=== PATIENT | female | born 1955 | race Caucasian/White ===

== ENCOUNTER 2020-05-17 11:37 | Emergency (ER) | payer MEDICARE | END 2020-05-17 13:05 | disposition home or self-care (01) | LOC: ERS 11:37 | DX: K08.89 Other specified disorders of teeth and supporting structures (principal); J43.9 Emphysema, unspecified; Z87.891 Personal history of nicotine dependence | CPT/HCPCS: 99282 ==

== ENCOUNTER 2020-06-22 13:14 | Emergency (ER) | payer MEDICARE ==
[2020-06-22 13:51] LABS: #Eosinphils 0.1 thou/uL (0.0-0.7); #Lymphocytes 1.6 thou/uL (1.20-3.40); #Monocytes 0.5 thou/uL (0.11-0.59); %Basophils 0.6 % (0.0-1.0); %Eosinophils 1.5 % (0.0-10.0); %Lymphocytes 19.7 % (21.0-51.0); %Monocytes 6.3 % (0.0-10.0); %Neutrophils 71.9 % (42.0-75.0); Hemoglobin 15.3 g/dL (12.0-16.0); Mean Corpuscular HGB CONC 33.8 g/dL (32.0-36.0); Mean Corpuscular Hemoglobin 31.1 pg (27.0-31.0); Mean Platelet Volume 6.5 fL (7.4-10.4); Platelet Count 309 thou/uL (130-400); RBC Distribution Width 11.4 % (11.5-14.5); Red Blood Cell (RBC) Count 4.93 mill/uL (4.20-5.40); White Blood Cell (WBC) Count 8.3 thou/uL (4.8-10.8)
[2020-06-22 14:13] LABS: ALT (SGPT) 7 U/L (8-55); AST (SGOT) 11 U/L (5-34); Albumin 3.7 g/dL (3.4-4.8); Alkaline Phosphatase 124 U/L (40-110); Anion Gap 12 mmol/L (10-20); BUN (Urea Nitrogen) 11 mg/dL (9.8-20.1); Bilirubin, Total 0.4 mg/dL (0.2-1.2); Calc. Creatinine Clearance 0 mL/min (70-130); Calcium 9.5 mg/dL (7.8-10.44); Carbon Dioxide 32 mmol/L (23-31); Chloride 102 mmol/L (98-107); Estimated GFR-MDRD 87; Globulin 3.2 g/dL (2.4-3.5); Glucose 114 mg/dL (80-115); Potassium 3.9 mmol/L (3.5-5.1); Protein, Total 6.9 g/dL (6.0-8.3); Sodium 142 mmol/L (136-145)
--- NOTE | 2020-06-22 14:33 | RAD ---
RADIOGRAPH CHEST 1 VIEW: DATE: 06/22/2020 HISTORY: 64-year-old female with cough FINDINGS: There are no airspace densities, pulmonary edema, pneumothorax, or cardiomegaly. The lateral costophr enic angles are sharp. Right axillary surgical clips. IMPRESSION: No acute cardiopulmonary findings.
[2020-06-22 14:58] LABS: Bacteria/HPF 4+ HPF (None Seen); Bilirubin Negative (Negative); Blood, Urine 1+ (Negative); Clarity Turbid (Clear); Glucose, Urine (Dipstick) Normal (Negative); Ketone, Urine Negative (Negative); Leukocyte 500 Leu/uL (Negative); Nitrite 2+ (Negative); Protein, Urine (Dipstick) 20 mg/dL (Neg-Trace); Specific Gravity, Urine 1.011 (1.002-1.036); Squamous Epithelial 0-3 HPF (0-3); Urobilinogen Normal mg/dL (Less than 2); WBC/HPF Greater than 50 HPF (0-3); pH, Urine 6.5 (5.0-9.0)
== END 2020-06-22 15:25 | disposition home or self-care (01) ==
LOC: ERS 13:14
DX: N30.00 Acute cystitis without hematuria (principal); J43.9 Emphysema, unspecified; Z87.891 Personal history of nicotine dependence
CPT/HCPCS: 36415; 71045; 80053; 81003; 81015; 85025; 87077; 87086; 87186

== ENCOUNTER 2020-07-31 14:09 | Emergency (ER) | payer MEDICARE | END 2020-07-31 15:40 | disposition home or self-care (01) | LOC: ERS 14:09 | DX: H60.92 Unspecified otitis externa, left ear (principal); J43.9 Emphysema, unspecified; Z87.891 Personal history of nicotine dependence | CPT/HCPCS: 99282 ==

== ENCOUNTER 2022-08-01 16:53 | Inpatient (IN) | payer MEDICARE ==
[2022-08-01] MEDS ORDERED: Ketorolac Tromethamine 30 MG/ML VIAL ONE (17:36)
[2022-08-01] MEDS ORDERED: Piperacillin/Tazobactam 3.375 GM VIAL ONE (17:36)
[2022-08-01] MEDS ORDERED: Acetaminophen 500 MG TAB ONE (17:36)
[2022-08-01 18:14] LABS: #Lymphocytes 0.9 thou/uL (1.20-3.40); #Monocytes 0.3 thou/uL (0.11-0.59); #Neutrophils 12.9 thou/uL (1.40-6.50); %Basophils 0.1 % (0.0-1.0); %Eosinophils 0.3 % (0.0-10.0); %Lymphocytes 6.1 % (21.0-51.0); %Monocytes 2.4 % (0.0-10.0); %Neutrophils 91.1 % (42.0-75.0); Hemoglobin 17.6 g/dL (12.0-16.0); Mean Corpuscular HGB CONC 34.4 g/dL (32.0-36.0); Mean Corpuscular Hemoglobin 31.5 pg (27.0-31.0); Mean Corpuscular Volume 91.6 fl (78.0-98.0); Platelet Count 270 10x3/uL (130-400); Red Blood Cell (RBC) Count 5.59 mill/uL (4.20-5.40); White Blood Cell (WBC) Count 14.1 10x3/uL (4.8-10.8)
[2022-08-01] MEDS ORDERED: Vancomycin 1 GM in Premix Bag 1 BAG IVPB SCH (18:30)
[2022-08-01 18:36] LABS: ALT (SGPT) 8 U/L (8-55); AST (SGOT) 16 U/L (5-34); Albumin 4.6 g/dL (3.4-4.8); Alkaline Phosphatase 136 U/L (40-110); Anion Gap 17 mmol/L (10-20); BUN (Urea Nitrogen) 14 mg/dL (9.8-20.1); Bilirubin, Total 0.8 mg/dL (0.2-1.2); Calc. Creatinine Clearance 0 mL/min (70-130); Calcium 9.6 mg/dL (7.8-10.44); Carbon Dioxide 25 mmol/L (23-31); Chloride 99 mmol/L (98-107); Estimated GFR 92; Globulin 3.5 g/dL (2.4-3.5); Glucose 111 mg/dL (80-115); Potassium 4.4 mmol/L (3.5-5.1); Protein, Total 8.1 g/dL (5.8-8.1); Sodium 137 mmol/L (136-145)
[2022-08-01] MEDS ORDERED: Ondansetron ODT 4 MG TAB PO PRN (19:58)
[2022-08-01] MEDS ORDERED: Ondansetron PF 4 MG/2 ML Vial IVP PRN (19:58)
[2022-08-01] MEDS ORDERED: Acetaminophen 650 MG Suppository PR PRN (19:58)
[2022-08-01 20:55] VITALS: BMI 23.9
[2022-08-01] MEDS: Sodium Chloride 0.9% 1,000 ML IV SCH (21:06)
[2022-08-02] MEDS: Acetaminophen 325 MG TAB PO PRN ×2 (04:20→21:52)
[2022-08-02] MEDS: Sodium Chloride 0.9% 1,000 ML IV SCH (04:21)
[2022-08-02] MEDS: cefTRIAXone\\ROCEPHIN 1 GM in Sodium Chloride 0.9% 100 ML IVPB SCH (04:21)
[2022-08-02] MEDS: Enoxaparin Sodium 40 MG/0.4 ML SYRINGE SC SCH (08:22)
[2022-08-02 09:26] LABS: #Monocytes 0.4 thou/uL (0.11-0.59); #Neutrophils 9.1 thou/uL (1.40-6.50); %Eosinophils 0.2 % (0.0-10.0); %Lymphocytes 9.8 % (21.0-51.0); %Neutrophils 86.1 % (42.0-75.0); Anion Gap 13 mmol/L (10-20); BUN (Urea Nitrogen) 12 mg/dL (9.8-20.1); Calc. Creatinine Clearance 90 mL/min (70-130); Calcium 8.3 mg/dL (7.8-10.44); Carbon Dioxide 21 mmol/L (23-31); Chloride 108 mmol/L (98-107); Estimated GFR 98; Glucose 94 mg/dL (80-115); Hemoglobin 13.3 g/dL (12.0-16.0); Mean Corpuscular HGB CONC 32.5 g/dL (32.0-36.0); Mean Corpuscular Hemoglobin 30.3 pg (27.0-31.0); Mean Corpuscular Volume 93.1 fl (78.0-98.0); Platelet Count 189 10x3/uL (130-400); Potassium 3.7 mmol/L (3.5-5.1); RBC Distribution Width 11.8 % (11.5-14.5); Red Blood Cell (RBC) Count 4.38 mill/uL (4.20-5.40); Sodium 138 mmol/L (136-145); White Blood Cell (WBC) Count 10.6 10x3/uL (4.8-10.8)
[2022-08-02] MEDS ORDERED: Iopamidol 370 76% 100 ML VIAL ONE (15:31)
[2022-08-02] MEDS: Doxycycline 100 MG in Sodium Chloride 0.9% 100 ML IVPB SCH (21:18)
[2022-08-03] MEDS: cefTRIAXone\\ROCEPHIN 1 GM in Sodium Chloride 0.9% 100 ML IVPB SCH (05:20)
[2022-08-03 07:29] LABS: #Lymphocytes 0.7 thou/uL (1.20-3.40); #Monocytes 0.4 thou/uL (0.11-0.59); #Neutrophils 6.7 thou/uL (1.40-6.50); %Basophils 0.3 % (0.0-1.0); %Eosinophils 0.3 % (0.0-10.0); %Monocytes 5.2 % (0.0-10.0); %Neutrophils 85.2 % (42.0-75.0); Hemoglobin 13.4 g/dL (12.0-16.0); Mean Corpuscular HGB CONC 34.3 g/dL (32.0-36.0); Mean Corpuscular Hemoglobin 31.4 pg (27.0-31.0); Mean Corpuscular Volume 91.5 fl (78.0-98.0); Mean Platelet Volume 6.9 fL (7.4-10.4); Platelet Count 175 10x3/uL (130-400); RBC Distribution Width 11.7 % (11.5-14.5); Red Blood Cell (RBC) Count 4.28 mill/uL (4.20-5.40); White Blood Cell (WBC) Count 7.9 10x3/uL (4.8-10.8)
[2022-08-03] MEDS: Doxycycline 100 MG in Sodium Chloride 0.9% 100 ML IVPB SCH ×2 (08:25→12:00)
[2022-08-03] MEDS: Enoxaparin Sodium 40 MG/0.4 ML SYRINGE SC SCH (08:26)
[2022-08-03 08:56] LABS: ALT (SGPT) 10 U/L (8-55); AST (SGOT) 15 U/L (5-34); Albumin 3.3 g/dL (3.4-4.8); Alkaline Phosphatase 99 U/L (40-110); Anion Gap 13 mmol/L (10-20); BUN (Urea Nitrogen) 9 mg/dL (9.8-20.1); Bilirubin, Total 0.5 mg/dL (0.2-1.2); Calc. Creatinine Clearance 90 mL/min (70-130); Calcium 8.7 mg/dL (7.8-10.44); Carbon Dioxide 22 mmol/L (23-31); Chloride 104 mmol/L (98-107); Estimated GFR 98; Globulin 2.8 g/dL (2.4-3.5); Glucose 90 mg/dL (80-115); Magnesium 1.7 mg/dL (1.6-2.6); Phosphorus 2.6 mg/dL (2.3-4.7); Potassium 3.5 mmol/L (3.5-5.1); Protein, Total 6.1 g/dL (5.8-8.1); Sodium 135 mmol/L (136-145)
[2022-08-03] MEDS ORDERED: diphenhydrAMINE 25 MG CAP PO SCH (15:30)
[2022-08-04] MEDS: Acetaminophen 325 MG TAB PO PRN (04:55)
[2022-08-04] MEDS: cefTRIAXone\\ROCEPHIN 1 GM in Sodium Chloride 0.9% 100 ML IVPB SCH (04:56)
[2022-08-04 07:30] LABS: Hemoglobin 13.6 g/dL (12.0-16.0); Mean Corpuscular HGB CONC 33.6 g/dL (32.0-36.0); Mean Corpuscular Hemoglobin 30.9 pg (27.0-31.0); Mean Corpuscular Volume 91.9 fl (78.0-98.0); Mean Platelet Volume 7.8 fL (7.4-10.4); Platelet Count 144 10x3/uL (130-400); RBC Distribution Width 11.7 % (11.5-14.5); White Blood Cell (WBC) Count 6.9 10x3/uL (4.8-10.8)
[2022-08-04 07:40] LABS: ALT (SGPT) 8 U/L (8-55); AST (SGOT) 11 U/L (5-34); Albumin 3.1 g/dL (3.4-4.8); Alkaline Phosphatase 93 U/L (40-110); Anion Gap 16 mmol/L (10-20); BUN (Urea Nitrogen) 9 mg/dL (9.8-20.1); Bilirubin, Total 0.4 mg/dL (0.2-1.2); Calc. Creatinine Clearance 81 mL/min (70-130); Calcium 8.4 mg/dL (7.8-10.44); Carbon Dioxide 22 mmol/L (23-31); Chloride 104 mmol/L (98-107); Estimated GFR 96; Globulin 2.6 g/dL (2.4-3.5); Glucose 227 mg/dL (80-115); Potassium 3.4 mmol/L (3.5-5.1); Protein, Total 5.7 g/dL (5.8-8.1); Sodium 139 mmol/L (136-145)
[2022-08-04] MEDS ORDERED: Electrolyte Replacement Protocol 1 EACH FS SCH (07:47)
[2022-08-04] MEDS ORDERED: Potassium Chloride 20 MEQ TAB PO SCH (08:00)
[2022-08-04 08:39] LABS: Magnesium 1.7 mg/dL (1.6-2.6)
[2022-08-04] MEDS: Enoxaparin Sodium 40 MG/0.4 ML SYRINGE SC SCH (08:45)
[2022-08-04 08:57] VITALS: TEMP 96.1
[2022-08-04] MEDS ORDERED: Magnesium 2 GM/50 ML(in water) 2 GM in Premix Bag 1 BAG IVPB SCH (09:15)
[2022-08-04 10:19] LABS: Band 3 % (5-11); Eosinophils 3 % (0-10); Lymphocytes 17 % (21-51); MDiff Complete? YES; Monocytes 6 % (0-10); Neutrophil 70 % (42-75); Platelet Morphology Comment Appears Adequate; Polychromasia SLIGHT = 2-3 cells (100X) (0-2/hpf); Reactive Lymphocytes 1 % (0-10); Vacuoles MODERATE
[2022-08-04 18:41] VITALS: BP 123/73
== END 2022-08-04 17:28 | disposition home or self-care (01) | DRG 872 ==
LOC: ERS 16:53 → T4-B 19:33
PROVIDERS: ADMIT Student in an Organized Health Care Education/Training Program; ATTEND Internal Medicine
DX: A41.9 Sepsis, unspecified organism (principal); L03.113 Cellulitis of right upper limb; F12.10 Cannabis abuse, uncomplicated; F17.210 Nicotine dependence, cigarettes, uncomplicated; Z20.822 Contact with and (suspected) exposure to COVID-19
CPT/HCPCS: 36415; 71045; 80048; 80053; 83605; 83735; 84100; 85025; 87040; 93005; 96374; 96375; J0696; J1885; J2543; J3370-JW; J3475; J3490; J7050; Q9967; U0003; U0005